=== PATIENT | male | born 1990 | race African-American/Black ===

== ENCOUNTER 2018-07-13 05:28 | Emergency (ER) | payer BC ==
[2018-07-13] MEDS ORDERED: Butalb/Acetamin/Caff TAB* 1 TAB PO ONE (05:46)
[2018-07-13] MEDS ORDERED: Butalb/Acetamin/Caff TAB* 1 TAB ONE (05:48)
--- NOTE | 2018-07-13 05:48 | ED ---
Headache - HPI Summary HPI Summary: The patient is a 27 y/o M presenting to [facility] with a chief complaint of a constant left-sided headache starting suddenly at 0300 this morning. He was sleeping when he woke up to the headache, which is currently rated 9/10 in severity. He states that the headache covers his entire left side of face and head. He attempted to treat the pain with Tylenol and Orajel to no relief. He has only had this similar pain when he had a problem with a tooth on the right side before. He currently has a cracked tooth on the upper left side. He additionally c/o itchy and swollen throat but denies fever, cough, nasal discharge, and visual changes. - History Of Current Complaint Chief Complaint: EDHeadache Stated Complaint: HEADACHE Time Seen by Provider: 07/13/18 05:35 Hx Obtained From: Patient Onset/Duration: Sudden Onset, Started hours ago - at 0300 this morning, Still Present Initially Headache Was: Moderate Currently Pain Is: Current Pain Scale(0-10)= - 9 Timing: Hours - since 0300 Character: Typical Headache - on left side of head and face Location of Headache: Other: - left side of face and head Associated Signs And Symptoms: Other (Noted In Comments) - POSITIVE: itchy and swollen throat, cracked tooth on upper left side; NEGATIVE: fevers, visual changes, cough, nasal discharge Head: 1 - headache on entirety of left side of face and head - Allergies/Home Medications Allergies/Adverse Reactions: Allergies Allergy/AdvReac Type Severity Reaction Status Date / Time No Known Allergies Allergy Verified 07/13/18 05:32 Home Medications: Home Medications Lisinopril 10 mg PO DAILY 07/13/18 [History Confirmed 07/13/18] Triamterene/HCTZ 37.5-25 MG* [Dyazide CAP*] 37.5 mg PO DAILY 07/13/18 [History Confirmed 07/13/18] PMH/Surg Hx/FS Hx/Imm Hx Endocrine/Hematology History: Denies: Hx Diabetes Respiratory History: Denies: Hx Asthma Opthamlomology History: Denies: Hx Legally Blind EENT History: Denies: Hx Deafness Infectious Disease History: No Infectious Disease History: Denies: Traveled Outside the [place] in Last 30 Days - Family History Known Family History: Positive: Hypertension - Social History Alcohol Use: Occasionally Substance Use Type: Reports: None Smoking Status (MU): Heavy Every Day Tobacco Smoker Review of Systems Negative: Fever Positive: Other - NEGATIVE: visual changes Positive: Dental Pain - some dental pain in cracked tooth on upper left side, Sore Throat - itchy and swollen. Negative: Nasal Discharge Negative: Cough Positive: Headache - left-sided All Other Systems Reviewed And Are Negative: Yes Physical Exam - Summary Physical Exam Summary: Appearance: Well-appearing, Well-nourished, lying in bed comfortable Skin: Warm, dry, no obvious rash Eyes: sclera anicteric, no conjunctival pallor ENT: mucous membranes moisten Dental: no tenderness to percussion of dental carries on left side, no sinus tenderness to percussion of the sinuses, no facial swelling Neck: no neck swelling or tenderness Respiratory: No signs of respiratory distress Cardiovascular: Appears well perfused, pulses are nml Abdomen: deferred Musculoskeletal: Moving all 4 extremities without obvious discomfort Neurological: Awake and alert, mentation is normal, speech is fluent and appropriate Psychiatric: affect is normal, does not appear anxious or depressed Triage Information Reviewed: Yes Vital Signs On Initial Exam: Initial Vitals Temp Pulse Resp BP Pulse Ox 98.7 F 80 16 143/97 99 07/13/18 05:30 07/13/18 05:30 07/13/18 05:30 07/13/18 05:30 07/13/18 05:30 Vital Signs Reviewed: Yes - Jacky Coma Scale Best Eye Response: 4 - Spontaneous Best Motor Response: 6 - Obeys Commands Best Verbal Response: 5 - Oriented Coma Scale Total: 15 Procedures - Lumbar Puncture Lumbar Paraspinals Position: Sitting Aseptic Technique: Local Anesthesia, Lidocaine Anesthesia Used: 1.0% Lido Lumbar Puncture Note: Lumbar puncture in the L4-L5 interspace in the sitting position using local anesthesia 1.0% lidocaine. 5mL of clear, colorless fluid was removed. Patient tolerated procedure well. Diagnostics - Vital Signs Vital Signs Temp Pulse Resp BP Pulse Ox 07/13/18 05:30 98.7 F 80 16 143/97 99 - Laboratory Result Diagrams: 07/13/18 06:04 07/13/18 06:04 Lab Statement: Any lab studies that have been ordered have been reviewed, and results considered in the medical decision making process. - CT Brain CT CT Interpretation: No Acute Changes - No acute disease. No hemorrhaging. ED physician has reviewed this report. CT Interpretation Completed By: Radiologist Re-Evaluation - Re-Evaluation First Eval Re-Evaluation Time: 06:35 Change: Unchanged Comment: I spoke with the patient about negative Brain CT results. I would like to do an LP, which the patient understands the need for and agrees with this plan. Headache Course/Dx - Course Course Of Treatment: The patient is a 27 y/o M presenting to [facility] with a chief complaint of a constant left-sided headache starting suddenly at 0300 this morning. He was sleeping when he woke up to the headache, which is currently rated /10 in severity. He states that the headache covers his entire left side of face and head. He attempted to treat the pain with Tylenol and Orajel to no relief. He has only had this similar pain when he had a problem with a tooth on the right side before. He currently has a cracked tooth on the upper left side. He additionally c/o itchy and swollen throat but denies fever, cough, nasal discharge, and visual changes. The physical exam reveals no tenderness to percussion of dental carries on left side, no sinus tenderness to percussion of the sinuses, no facial swelling, and neck is normal. In the ED course, the pt was given Fioricet. Brain CT is negative for hemorrhaging. Lumbar puncture in the L4-L5 interspace in the sitting position using local anesthesia 1.0% lidocaine; 5mL of clear, colorless fluid was removed. Patient is currently dx with a headache. Patient tolerated procedure well. Patient is a sign-out to Dr. Giovani Delcid MD, at shift change at 0700 pending cerebrospinal fluid lab results and disposition. - Diagnoses Provider Diagnoses: Headache Discharge - Sign-Out/Discharge Documenting (check all that apply): Sign-Out Patient Signing out patient TO: Giovani Delcid - Patient tolerated procedure well. Patient is a sign-out to Dr. Giovani Delcid MD, at shift change at 0700 pending cerebrospinal fluid lab results and disposition. - Discharge Plan Referrals: No Primary Care Phys,NOPCP [Primary Care Provider] - - Attestation Statements Document Initiated by Scribe: Yes Documenting Scribe: Valerie Caba Provider For Whom Simon is Documenting (Include Credential): Dr. Nelson France MD Scribe Attestation: Valerie Lowery scribed for Dr. Nelson France MD on 07/13/18 at 0640. Scribe Documentation Reviewed: Yes Provider Attestation: The documentation as recorded by the Valerie burgos accurately reflects the service I personally performed and the decisions made by me, Dr. Nelson France MD
[2018-07-13 06:15] LABS: ABS Basophils 0.1 10^3/ul (0-0.2); ABS Eosinophils 0.2 10^3/ul (0-0.6); ABS Lymphocytes 1.9 10^3/ul (1.0-4.8); ABS Monocytes 0.5 10^3/ul (0-0.8); ABS Neutrophils 4.1 10^3/ul (1.5-7.7); ABS Nucleated RBC 0 10^3/ul; Eosinophil % 3.4 % (0-6); Hematocrit 44 % (42-52); Hemoglobin 15.4 g/dl (14.0-18.0); Lymphocyte % 27.6 % (25-47); Mean Corpuscular HGB Conc 35 g/dl (31-36); Mean Corpuscular Hemoglobin 31 pg (27-31); Mean Corpuscular Volume 90 fL (80-94); Mean Platelet Volume 8.8 um3 (7.4-10.4); Nucleated Red Blood Cells % 0.2; Platelet Count 287 10^3/ul (150-450); Red Blood Count 4.95 10^6/ul (4.00-5.40); Red Cell Distribution Width 14 % (10.5-15); White Blood Count 6.7 10^3/ul (3.5-10.8)
[2018-07-13 06:38] LABS: EGFR Non-African American 101.2 (>60)
[2018-07-13] MEDS ORDERED: Lidocaine 2% 10 ML* VIAL INJ ONE (06:40)
[2018-07-13] MEDS ORDERED: Lidocaine 2% PF * 5 ML VIAL ONE (06:46)
--- NOTE | 2018-07-13 06:55 | RAD ---
EXAM: CT Head Without Intravenous Contrast CLINICAL HISTORY: 27 years old, male; Pain; Headache; Headache not specified; Additional info: Abrupt onset left sided headache TECHNIQUE: Axial computed tomography images of the head/brain without intravenous contrast. All CT scans at this facility use at least one of these dose optimization techniques: automated exposure control; mA and/or kV adjustment per patient size (includes targeted exams where dose is matched to clinical indication); or iterative reconstruction. COMPARISON: No relevant prior studies available. FINDINGS: Brain: Unremarkable. No hemorrhage. No significant white matter disease. No edema. Ventricles: Unremarkable. No ventriculomegaly. Bones/joints: Unremarkable. No acute fracture. Soft tissues: Unremarkable. Sinuses: Unremarkable as visualized. No acute sinusitis. Mastoid air cells: Unremarkable as visualized. No mastoid effusion. IMPRESSION: Normal head/brain CT.
[2018-07-13 07:25] LABS: Body Fluid Source Cerebral Spinal
[2018-07-13] MEDS ORDERED: Lidocaine 2% PF * 5 ML VIAL INJ ONE (07:43)
--- NOTE | 2018-07-13 08:06 | ED ---
Progress - Progress Note Progress Note: This patient was signed out from Dr. France on shift change awaiting CSF results. They were negative pt will be discharged with migraine headache. Re-Evaluation - Re-Evaluation First Eval Re-Evaluation Time: 06:35 Change: Unchanged Comment: I discussed CSF results and d/c with the patient. His headache has resolved. Course/Dx - Course Course Of Treatment: 0 RBC on tap. Pt tx with oral meds only with full resolution. Very benign appearance. Happy and pleasant with NO sx. - Diagnoses Provider Diagnoses: Migraine headache Discharge - Sign-Out/Discharge Documenting (check all that apply): Patient Departure, Receiving Sign-Out Receiving patient FROM: Nelson France - Discharge Plan Condition: Good Disposition: HOME Prescriptions: Butalb/Acetamin/Caff TAB* [Fioricet TAB*] 2 tab PO Q6H PRN #15 tab MDD 4 tabs PRN Reason: Headache Patient Education Materials: Migraine Headache (ED) Forms: *Work Release Referrals: [facility] [Outside] Additional Instructions: The tests we did this morning did not show any sign of something serious like an aneurysm as the cause of your headache. The headache may recur, and you can use the fioricet if that happens. - Billing Disposition and Condition Condition: GOOD Disposition: Home - Attestation Statements Document Initiated by Simon: Yes Documenting Scribe: Kody Mariano Provider For Whom Simon is Documenting (Include Credential): Giovani Delcid MD Scribe Attestation: Kody Lowery , scribed for Giovani Delcid MD on 07/13/18 at 0855. Scribe Documentation Reviewed: Yes Provider Attestation: The documentation as recorded by the Kody burgos accurately reflects the service I personally performed and the decisions made by me, Giovani Delcid MD
[2018-07-13 08:14] VITALS: BP 134/86
== END 2018-07-13 08:14 | disposition home or self-care (01) ==
LOC: ED 05:28
DX: G43.909 Migraine, unspecified, not intractable, without status migrainosus (principal); K08.89 Other specified disorders of teeth and supporting structures; J02.9 Acute pharyngitis, unspecified; F17.210 Nicotine dependence, cigarettes, uncomplicated
CPT/HCPCS: 36415; 70450; 80048; 82945; 84157; 85025; 86140; 87070; 87205; 89051; 96374; 96375; 99283; A9270-GY